=== PATIENT | male | born 1995 | race African-American/Black ===

== ENCOUNTER 2023-10-07 17:36 | Emergency (ER) | payer SELFPAY ==
[2023-10-07 17:45] VITALS: BP 142/91; PULSE 106; RESP 18; TEMP 37.1; O2SAT 100; BMI 27.3
== END 2023-10-07 17:57 | disposition left against medical advice (07) ==
LOC: ER 19:09
PROVIDERS: Emergency Provider Emergency Medicine
DX: Z53.21 Procedure and treatment not carried out due to patient leaving prior to being seen by health care provider (principal)

== ENCOUNTER 2023-10-28 06:55 | Emergency (ER) | payer SELFPAY ==
[2023-10-28 07:01] VITALS: BP 145/92; PULSE 117; RESP 16; TEMP 37.1; O2SAT 99; BMI 28.1
[2023-10-28 07:27] LABS: Basophils Percent Auto 0.4 % (0.2-2.0); Eosinophils Percent Auto 0.1 % (0.9-7.0); Hematocrit 47.4 % (42.0-54.0); Hemoglobin 15.4 g/dL (14.0-18.0); Immature Granulocytes Abs Auto 0.02 10^3/uL (0.00-0.03); Immature Granulocytes Pct Auto 0.2 % (0.0-0.5); Lymphocytes Absolute Auto 1.9 10^3/uL (1.2-3.8); Lymphocytes Percent Auto 19.6 % (20.5-60.0); Mean Corpuscular HGB Conc 32.5 g/dL (29.9-35.2); Mean Corpuscular Hemoglobin 29.4 pg (25.9-34.0); Mean Corpuscular Volume 90.5 fL (80.0-94.0); Mean Platelet Volume 11.7 fL (9.5-13.5); Monocytes Absolute Auto 0.5 10^3/uL (0.3-0.8); Monocytes Percent Auto 4.7 % (1.7-12.0); Neutrophils Absolute Auto 7.1 10^3/uL (1.4-6.5); Platelet Count 283 10^3/uL (150-450); Red Blood Count 5.24 10^6/uL (4.70-6.10); Red Cell Distribution Width 12.4 % (11.0-15.0); White Blood Count 9.5 10^3/uL (4.0-11.0)
[2023-10-28 07:42] LABS: Bilirubin Urine NEGATIVE (NEGATIVE); Blood Urine NEGATIVE (NEGATIVE); Clarity Urine CLEAR (CLEAR); Color Urine YELLOW (YELLOW); Glucose Urine UA NEGATIVE (NEGATIVE); Ketones Urine NEGATIVE (NEGATIVE); Leukocyte Esterase Urine NEGATIVE (NEGATIVE); Nitrite Urine NEGATIVE (NEGATIVE); Protein Urine NEGATIVE (NEG/TRACE); Specific Gravity Urine 1.025 (1.005-1.025); Urobilinogen Urine 0.2 EU/dL (0.2-1.0)
[2023-10-28 07:43] LABS: Urine Microscopic Indicated NO
[2023-10-28 07:47] LABS: Alanine Aminotransferase 43 U/L (16-63); Albumin Level 4.4 g/dL (3.4-5.0); Alkaline Phosphatase 53 U/L (46-116); Anion Gap 14.7; Aspartate Amino Transferase 23 U/L (15-37); BUN Creatinine Ratio 10.1; Bilirubin Direct 0.1 mg/dL (0.0-0.2); Bilirubin Total 0.5 mg/dL (0.2-1.0); Calcium 9.4 mg/dL (8.5-10.1); Carbon Dioxide 27.9 mmol/L (21.0-32.0); Chloride 99 mmol/L (98-107); Estimated GFR (African America >60 (>=60); Estimated GFR (Non-African Ame >60 (>=60); Globulin 4.3 g/dL; Glucose 131 mg/dL (74-106); Potassium 3.6 mmol/L (3.5-5.1); Sodium 138 mmol/L (136-145); Total Protein 8.7 g/dL (6.4-8.2)
--- NOTE | 2023-10-28 07:57 | CT_ITS ---
[address] [address] Patient Name: BEN MUSTAFA MRN: [id number] date: 1995 Sex: M Assigned Patient Location: ER Current Patient Location: ER Accession/Order Number: [id number] Exam Date: 10/28/2023 08:33 Report Date: 10/28/2023 09:36 At the request of: LUIS CHOWDHURY Procedure: CT abdomen pelvis w con EXAMINATION: CT abdomen pelvis w con HISTORY: low abd pain , acute periumbilical pain for 3 days COMPARISON: No relevant comparison available. TECHNIQUE: Axial, Coronal, and Sagittal images were obtained without and/or with IV contrast as indicated by examination type. Dose reduction techniques were achieved by using automated exposure control and/or adjustment of mA and/or kV according to patient size and/or use of iterative reconstruction technique. FINDINGS: LUNG BASES: No visible pulmonary or pleural disease. LIVER: No enlargement, atrophy, suspicious density, or significant focal lesion. BILIARY: No dilatation or calcification. PANCREAS: No lesion, fluid collection, or abnormal duct dilatation. SPLEEN: No enlargement or focal lesion. ADRENALS: No mass or enlargement. KIDNEYS: No mass, obstruction, or calcification. BOWEL/MESENTERY: No visible mass, obstruction, or bowel wall thickening. Normal appendix. AORTA/VASCULAR: No aneurysm or dissection. RETROPERITONEUM: No mass or adenopathy. LYMPH NODES: No adenopathy. URINARY BLADDER: No visible focal wall thickening, lesion, or calculus. PELVIC ORGANS: No visible mass. Pelvic organs appropriate for patient age. ABDOMINAL WALL: No mass or hernia. BONES: No bony lesion or fracture. OTHER: Negative. CT/CT abdomen pelvis w con IMPRESSION: 1. No abnormal or suspicious findings to account for patient's symptoms. 2. No significant stool burden, bowel obstruction, or inflammatory changes. Electronically authenticated by: KAREN PATEL Date: 10/28/2023 09:36
--- NOTE | 2023-10-28 07:58 | ED_ITS ---
HPI - Abdominal Pain General Chief Complaint: Abdominal Pain Stated Complaint: general weakness Time Seen by Provider: 10/28/23 07:48 Source: patient Mode of arrival: walk-in Limitations: no limitations History of Present Illness HPI narrative: 28-year-old male presents to the emergency department for chief complaint of abdominal pain. He's had it for the last day or two and it's in his mid abdomen. A urine a half ago he had colitis and was treated as an outpatient with Flagyl and Cipro. the pain is moderate and continuous. No vomiting or fever or injury. Related Data Previous Rx's Medication Instructions Recorded dicyclomine 10 mg capsule 10 mg PO QID PRN abdominal pain 10/28/23 #20 caps Allergies Allergy/AdvReac Type Severity Reaction Status Date / Time No Known Drug Allergies Allergy Verified 10/28/23 07:01 Review of Systems ROS Narrative A ten point review of systems is negative except as noted above. PFSH PFSH Social History Smoking status: Never smoker Exam Narrative Exam Narrative: Nurses note and vital signs reviewed and patient is not hypoxic. General: The patient appears well and in no apparent distress. Patient is resting comfortably on cart. Skin: Warm, dry, no pallor noted. There is no rash noted. Head: Normocephalic, atraumatic Eye: Normal conjunctiva, no drainage Ears, Nose, Mouth, and Throat: oral mucosa is moist. Nares patent. Cardiovascular: Regular Rate and Rhythm Respiratory: Patient is in no distress, no accessory muscle use, lungs are clear to auscultation, no wheezing, rales or rhonchi Back: non-tender GI: mild mid abdominal tenderness without distention rebound guarding or mass Musculoskeletal: The patient has no evidence of calf tenderness, no pitting edema, symmetrical pulses noted bilaterally Neurological: A&O, normal speech Psychiatric: Cooperative Constitutional Vital Signs, click to edit/add: Last Vital Signs Temp 98.7 F 10/28/23 07:01 Pulse 92 H 10/28/23 08:34 Resp 16 10/28/23 08:34 BP 118/81 10/28/23 08:34 Pulse Ox 99 10/28/23 08:34 O2 Del Method Room Air 10/28/23 08:34 Course Vital Signs Vital signs: Vital Signs Temperature 98.7 F 10/28/23 07:01 Pulse Rate 117 H 10/28/23 07:01 Respiratory Rate 16 10/28/23 07:01 Blood Pressure 145/92 H 10/28/23 07:01 Pulse Oximetry 99 10/28/23 07:01 Oxygen Delivery Method Room Air 10/28/23 07:01 Temperature 98.7 F 10/28/23 07:01 Pulse Rate 92 H 10/28/23 08:34 Respiratory Rate 16 10/28/23 08:34 Blood Pressure 118/81 10/28/23 08:34 Pulse Oximetry 99 10/28/23 08:34 Oxygen Delivery Method Room Air 10/28/23 08:34 MDM - Abdominal Pain MDM Narrative Medical decision making narrative: workup is negative including CAT scan. He is referred to general surgery. He has a history of colitis. He's never had a colonoscopy. Treatment diagnosis and follow-up were discussed with the patient. Differential Diagnosis Differential diagnosis: Likely abdominal pain, constipation, diverticulitis and gastroenteritis Lab Data Attestation: I reviewed the patient's lab results. Labs: Lab Results 10/28/23 10/28/23 Range/Units 07:07 07:15 WBC 9.5 (4.0-11.0) 10^3/uL RBC 5.24 (4.70-6.10) 10^6/uL Hgb 15.4 (14.0-18.0) g/dL Hct 47.4 (42.0-54.0) % MCV 90.5 (80.0-94.0) fL MCH 29.4 (25.9-34.0) pg MCHC 32.5 (29.9-35.2) g/dL RDW 12.4 (11.0-15.0) % Plt Count 283 (150-450) 10^3/uL MPV 11.7 (9.5-13.5) fL Neut % (Auto) 75.0 (43.0-75.0) % Lymph % (Auto) 19.6 L (20.5-60.0) % Riley % (Auto) 4.7 (1.7-12.0) % Eos % (Auto) 0.1 L (0.9-7.0) % Baso % (Auto) 0.4 (0.2-2.0) % Neut # (Auto) 7.1 H (1.4-6.5) 10^3/uL Lymph # (Auto) 1.9 (1.2-3.8) 10^3/uL Riley # (Auto) 0.5 (0.3-0.8) 10^3/uL Eos # (Auto) 0.0 (0.0-0.7) 10^3/uL Baso # (Auto) 0.0 (0.0-0.1) 10^3/uL Abs Immat Gran (auto) 0.02 (0.00-0.03) 10^3/uL Imm/Tot Granulo (auto) 0.2 (0.0-0.5) % Sodium 138 (136-145) mmol/L Potassium 3.6 (3.5-5.1) mmol/L Chloride 99 (98-107) mmol/L Carbon Dioxide 27.9 (21.0-32.0) mmol/L Anion Gap 14.7 BUN 10.0 (7.0-18.0) mg/dL Creatinine 0.99 (0.70-1.30) mg/dL Est GFR ( Amer) >60 (>=60) Est GFR (Non-Af Amer) >60 (>=60) BUN/Creatinine Ratio 10.1 Glucose 131 H (74-106) mg/dL Calcium 9.4 (8.5-10.1) mg/dL Total Bilirubin 0.5 (0.2-1.0) mg/dL Direct Bilirubin 0.1 (0.0-0.2) mg/dL AST 23 (15-37) U/L ALT 43 (16-63) U/L Alkaline Phosphatase 53 (46-116) U/L Total Protein 8.7 H (6.4-8.2) g/dL Albumin 4.4 (3.4-5.0) g/dL Globulin 4.3 g/dL Albumin/Globulin Ratio 1.0 Lipase 25.0 (16.0-77.0) U/L Urine Color Yellow (YELLOW) Urine Clarity Clear (CLEAR) Urine pH 6.0 (5.0-9.0) Ur Specific [place] 1.025 (1.005-1.025) Urine Protein Negative (NEG/TRACE) mg/dL Urine Glucose (UA) Negative (NEGATIVE) mg/dL Urine Ketones Negative (NEGATIVE) mg/dL Urine Occult Blood Negative (NEGATIVE) Urine Nitrite Negative (NEGATIVE) Urine Bilirubin Negative (NEGATIVE) Urine Urobilinogen 0.2 (0.2-1.0) EU/dL Ur Leukocyte Esterase Negative (NEGATIVE) Imaging Data CT scan - abdomen: Radiologist's impression: Procedure: CT abdomen pelvis w con EXAMINATION: CT abdomen pelvis w con HISTORY: low abd pain , acute periumbilical pain for 3 days COMPARISON: No relevant comparison available. TECHNIQUE: Axial, Coronal, and Sagittal images were obtained without and/or with IV contrast as indicated by examination type. Dose reduction techniques were achieved by using automated exposure control and/or adjustment of mA and/or kV according to patient size and/or use of iterative reconstruction technique. FINDINGS: LUNG BASES: No visible pulmonary or pleural disease. LIVER: No enlargement, atrophy, suspicious density, or significant focal lesion. BILIARY: No dilatation or calcification. PANCREAS: No lesion, fluid collection, or abnormal duct dilatation. SPLEEN: No enlargement or focal lesion. ADRENALS: No mass or enlargement. KIDNEYS: No mass, obstruction, or calcification. BOWEL/MESENTERY: No visible mass, obstruction, or bowel wall thickening. Normal appendix. AORTA/VASCULAR: No aneurysm or dissection. RETROPERITONEUM: No mass or adenopathy. LYMPH NODES: No adenopathy. URINARY BLADDER: No visible focal wall thickening, lesion, or calculus. PELVIC ORGANS: No visible mass. Pelvic organs appropriate for patient age. ABDOMINAL WALL: No mass or hernia. BONES: No bony lesion or fracture. OTHER: Negative. IMPRESSION: 1. No abnormal or suspicious findings to account for patient's symptoms. 2. No significant stool burden, bowel obstruction, or inflammatory changes. Electronically authenticated by: KAREN PATEL Date: 10/28/2023 09:36 Discharge Plan Discharge Chief Complaint: Abdominal Pain Clinical Impression: Abdominal pain Patient Disposition: Home, Self-Care Time of Disposition Decision: 09:43 Condition: Good Mode of Transportation: Private Vehicle Prescriptions / Home Meds: New dicyclomine 10 mg capsule 10 mg PO QID PRN (Reason: abdominal pain) Qty: 20 0RF Instructions: Abdominal Pain (ED) Additional Instructions: follow-up with Dr. Goodrich Stand Alone Forms: Portal Instructions Referrals: Physician,Non-Staff, MD [Primary Care Provider] - 1 week
--- NOTE | 2023-10-28 08:06 | PC.NURSE ---
Report given to ABI Bautista.
[2023-10-28 08:34] VITALS: BP 118/81; PULSE 92; RESP 16; O2SAT 99
== END 2023-10-28 10:04 | disposition home or self-care (01) ==
PROVIDERS: Emergency Provider Emergency Medicine
DX: R10.9 Unspecified abdominal pain (principal)
CPT/HCPCS: 36415; 74177; 80053; 80076; 81003; 83690; 85025; 99285; Q9967

== ENCOUNTER 2023-10-28 18:52 | Emergency (ER) | payer SELFPAY ==
[2023-10-28 19:00] VITALS: BP 150/88; PULSE 109; RESP 16; TEMP 37.1; O2SAT 100; BMI 28.1
--- NOTE | 2023-10-28 19:24 | ED_ITS ---
HPI - General Adult General Chief complaint: Skin/Abscess/Foreign Body Stated complaint: abd pain Time Seen by Provider: 10/28/23 19:09 Source: patient Mode of arrival: walk-in Limitations: no limitations History of Present Illness HPI narrative: 28 year old male presents to the ED for rectal pain. Onset was 2-3 days ago. States he feels the urge to have a bowel movement. When he has a bowel movement his pain improves for a period of time. Denies fever, chills, injury. Denies black stoosl, bloody stools. He was evaluated here this morning for abd pain. CT scan of the abdomen/pelvis was unremarkable. Rates his pain 4/10 at this time. Related Data Previous Rx's Medication Instructions Recorded dicyclomine 10 mg capsule 10 mg PO QID PRN abdominal pain 10/28/23 #20 caps Allergies Allergy/AdvReac Type Severity Reaction Status Date / Time No Known Drug Allergies Allergy Verified 10/28/23 07:01 Review of Systems ROS Constitutional Denies: fever or chills Gastrointestinal Reports: rectal pain; Denies: nausea, vomiting, diarrhea, constipation, excessive passing of gas, painful bowel movements, rectal swelling, rectal itching, change in stool character, blood in stool, mucus in stool or white/light colored stool Musculoskeletal Denies: back pain Integumentary/Breast Denies: rash or itching Neurological Denies: headache PFSH PFSH Social History Smoking status: Never smoker Exam Constitutional Vital Signs, click to edit/add: Last Vital Signs Temp 98.7 F 10/28/23 19:00 Pulse 109 H 10/28/23 19:00 Resp 16 10/28/23 19:00 BP 150/88 H 10/28/23 19:00 Pulse Ox 100 10/28/23 19:00 O2 Del Method Room Air 10/28/23 19:00 Common normals: no apparent distress and oriented x3 General appearance: cooperative; not ill appearing Eye Common normals: conjunctivae normal and no scleral icterus Neck & C-Spine Common normals: supple Chest Chest: symmetrical chest wall rise Respiratory Common normals: normal respiratory effort Effort & inspection: able to speak in complete sentences and symmetric chest movement Cardio Common normals: regular rate GI Common normals: Normal to inspection, nondistended, normoactive bowel sounds present, soft to palpation and non-tender Rectal Exam - Male: visual inspection normal and normal sphincter tone; no hemorrhoids (No palpable or visible hemorrhoid. ), no fecal impaction (No palpable stool in vault. 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 No firm or fluctuant area consistent with abscess noted to medial buttocks. No signs of pilonidal abscess. Neuro Common normals: oriented x3 Sensorium/orientation: awake and alert Speech: speech normal Gait (neuro): normal gait Course Vital Signs Vital signs: Vital Signs Temperature 98.7 F 10/28/23 19:00 Pulse Rate 109 H 10/28/23 19:00 Respiratory Rate 16 10/28/23 19:00 Blood Pressure 150/88 H 10/28/23 19:00 Pulse Oximetry 100 10/28/23 19:00 Oxygen Delivery Method Room Air 10/28/23 19:00 Temperature 98.7 F 10/28/23 19:00 Pulse Rate 109 H 10/28/23 19:00 Respiratory Rate 16 10/28/23 19:00 Blood Pressure 150/88 H 10/28/23 19:00 Pulse Oximetry 100 10/28/23 19:00 Oxygen Delivery Method Room Air 10/28/23 19:00 Medical Decision Making MDM Narrative Medical decision making narrative: He has been taking the Bentyl he was prescribed this morning as directed. Physical exam was unremarkable. His CT scan and lab work from this morning were reviewed. He was encouraged to follow up with his pcp for a recheck, further evaluation and treatment. Medical Records Medical records reviewed: Yes I reviewed the patient's medical records Lab Data Lab results reviewed: Yes I reviewed the patient's lab results Discharge Plan Discharge Chief Complaint: Skin/Abscess/Foreign Body Clinical Impression: Anal or rectal pain Patient Disposition: Home, Self-Care Time of Disposition Decision: 19:24 Condition: Good Mode of Transportation: Private Vehicle Prescriptions / Home Meds: No Action dicyclomine 10 mg capsule 10 mg PO QID PRN (Reason: abdominal pain) Qty: 20 0RF Instructions: Rectal Pain (ED) Stand Alone Forms: Portal Instructions Referrals: Physician,Non-Staff, MD [Primary Care Provider] - As soon as possible Discharge Date/Time: 10/28/23 19:33
== END 2023-10-28 19:33 | disposition home or self-care (01) ==
PROVIDERS: Emergency Provider Emergency Medicine
DX: K62.89 Other specified diseases of anus and rectum (principal)
CPT/HCPCS: 99281